=== PATIENT | male | born 1990 | race African-American/Black ===

== ENCOUNTER 2022-01-09 05:36 | Inpatient (IN) ==
[2022-01-09] MEDS ORDERED: AMMONIA INHALANT 1 EACH AMP INH ONE ×2 (05:40→05:47)
[2022-01-09] MEDS ORDERED: NALOXONE 0.4 MG/ML VIAL ONE (05:40)
[2022-01-09] MEDS ORDERED: hydrALAZINE 20 MG/1 ML VIAL IV STA (05:50)
[2022-01-09] MEDS ORDERED: NALOXONE 0.4 MG/ML VIAL IV STA (05:50)
[2022-01-09 06:14] LABS: Basophils # 0.1 10*3/uL (0.0-0.2); Basophils % 0.7 % (0.0-0.8); Eosinophils # 0.2 10*3/uL (0.0-0.87); Eosinophils % 2.7 % (0.00-10.9); Hematocrit 44.5 VOL% (42.0-52.0); Hemoglobin 14.6 GM/DL (14.0-18.0); Immature Granulocytes % 0.3 %; Immature Granulocytes Absolute 0.03 #; Lymphocytes # 3.5 10*3/uL (1.4-4.0); Lymphocytes % 39.5 % (21.2-54.2); Mean Corpuscular HGB Conc 32.8 GM/DL (32-36); Mean Corpuscular Volume 93.3 FL (87-102); Mean Platelet Volume 11.7 FL (9.6-12.0); Monocytes # 0.7 10*3/uL (0.11-0.8); Monocytes % 7.4 % (1.7-12.7); Neutrophils % 49.4 % (38.7-73.9); Platelet Count 214 T/CUMM (130-400); Red Blood Count 4.77 MC/CUMM (3.8-5.5); Red Cell Distribution Width 14.6 % (9.3-17.3); White Blood Count 8.9 T/CUMM (4-12)
[2022-01-09 06:15] LABS: Arterial Base Excess iSTAT 1 MMOL/L (-2.5-2.5); Arterial Bicarbonate iSTAT 24.2 MMOL/L (20-26); Arterial O2 Saturation iSTAT 98 % (95-100); Arterial PCO2 iSTAT 35 MM HG (35-48); Arterial PO2 iSTAT 103 MM HG (80-95); Arterial Total CO2 iSTAT 25 MMO/L (23-27); Arterial pH iSTAT 7.445 (7.35-7.45)
[2022-01-09 06:25] LABS: Alanine Aminotransferase 96 U/L (16-61); Albumin 4.3 G/DL (3.4-5.0); Alkaline Phosphatase 118 U/L (45-117); Aspartate Amino Transferase 56 U/L (0-37); Blood Urea Nitrogen 15 MG/DL (7-18); Calcium 9.4 MG/DL (8.5-10.1); Carbon Dioxide 25 MMOL/L (21-32); Chloride 110 MMOL/L (98-107); Glucose 104 MG/DL (74-106); Osmolality,Calculated 283.1 MOS/KG (273-304); Sodium 142 MMOL/L (136-145); Total Protein 8.6 G/DL (6.4-8.2)
[2022-01-09 06:33] LABS: Mucus,Urine Many /LPF (Occasional); RBC,Urine 1 /HPF (0-4)
[2022-01-09 06:34] LABS: Bilirubin,Urine Negative (Negative); Blood, Urine Negative (Negative); Glucose,Urine (UA) Negative (Negative); Ketones,Urine Negative (Negative); Nitrite,Urine Negative (Negative); Protein,Urine 30 mg/dL (Negative); Urine Appearance Clear (Clear); Urine Color Yellow (Yellow); Urine Specific Gravity > 1.030 (1.001-1.035); Urine Urobilinogen 0.2 eU/dL (<2.0)
[2022-01-09 06:43] LABS: Barbiturates Screen,Urine Negative (Negative); Benzodiazepines Screen,Urine Negative (Negative); Cannabinoid Screen,Urine Negative (Negative); Opiate Screen,Urine Negative (Negative); Phencyclidine Screen,Urine Negative (Negative)
[2022-01-09] MEDS ORDERED: SODIUM CHLORIDE 0.9% 1,000 ML IV STA (07:00)
[2022-01-09] MEDS ORDERED: GLUCAGON 1 MG VIAL IM PRN (08:18)
[2022-01-09] MEDS ORDERED: ACETAMINOPHEN 325 MG TABLET PO PRN (08:18)
[2022-01-09] MEDS ORDERED: ONDANSETRON 4 MG/2 ML VIAL IV PRN (08:18)
[2022-01-09] MEDS ORDERED: ZALEPLON 5 MG CAPSULE PO PRN (08:18)
[2022-01-09] MEDS ORDERED: DEXTROSE 10% 250 ML BAG IV PRN (08:24)
[2022-01-09] MEDS: PANTOPRAZOLE 40 MG TABLET PO SCH (09:16)
[2022-01-09] MEDS: LACTATED RINGERS 1,000 ML IV SCH ×2 (09:17→23:45)
[2022-01-09] MEDS: ENOXAPARIN 40 MG/0.4 ML SYRINGE SUBCUT SCH (09:18)
[2022-01-09 09:39] LABS: Hepatitis B Core IgM Quant < 0.05 Index; Hepatitis B Surface Ag Quant < 0.10 Index; Hepatitis B Surface Ag Result Non-Reactive (NonReactive); Hepatitis C Virus Ab Quant 0.06 Index; Hepatitis C Virus Ab Result Non-Reactive (NonReactive)
[2022-01-10 06:18] LABS: Basophils % 0.5 % (0.0-0.8); Eosinophils # 0.3 10*3/uL (0.0-0.87); Eosinophils % 3.1 % (0.00-10.9); Hemoglobin 13.8 GM/DL (14.0-18.0); Immature Granulocytes % 0.3 %; Immature Granulocytes Absolute 0.03 #; Lymphocytes # 3.6 10*3/uL (1.4-4.0); Lymphocytes % 41.7 % (21.2-54.2); Mean Corpuscular HGB Conc 32.9 GM/DL (32-36); Mean Corpuscular Volume 92.7 FL (87-102); Mean Platelet Volume 10.9 FL (9.6-12.0); Monocytes # 0.7 10*3/uL (0.11-0.8); Monocytes % 8.1 % (1.7-12.7); Neutrophils % 46.3 % (38.7-73.9); Platelet Count 193 T/CUMM (130-400); Red Blood Count 4.53 MC/CUMM (3.8-5.5); Red Cell Distribution Width 14.7 % (9.3-17.3); White Blood Count 8.6 T/CUMM (4-12)
[2022-01-10 06:39] LABS: Albumin 3.4 G/DL (3.4-5.0); Bilirubin,Total 0.6 MG/DL (0.20-1.00); Osmolality,Calculated 277.4 MOS/KG (273-304); Potassium 3.5 MMOL/L (3.5-5.1); Risk Ratio 6.61; Total Protein 6.9 G/DL (6.4-8.2); VLDL Cholesterol 20.4 MG/DL
[2022-01-10 06:46] LABS: Folate 10.13 NG/ML (5.38-24.0)
[2022-01-10] MEDS: ENOXAPARIN 40 MG/0.4 ML SYRINGE SUBCUT SCH (09:09)
[2022-01-10] MEDS: PANTOPRAZOLE 40 MG TABLET PO SCH (09:09)
[2022-01-10] MEDS: LACTATED RINGERS 1,000 ML IV SCH ×2 (09:09→22:10)
[2022-01-10] MEDS: VANCOMYCIN INJ 1,750 MG in SODIUM CHLORIDE 0.9% 500 ML IV SCH (12:40)
[2022-01-11] MEDS: LACTATED RINGERS 1,000 ML IV SCH ×3 (01:38→15:44)
[2022-01-11] MEDS: VANCOMYCIN INJ 1,750 MG in SODIUM CHLORIDE 0.9% 500 ML IV SCH ×2 (01:46→12:40)
[2022-01-11 04:50] LABS: Basophils # 0.1 10*3/uL (0.0-0.2); Basophils % 0.7 % (0.0-0.8); Eosinophils # 0.2 10*3/uL (0.0-0.87); Eosinophils % 3.2 % (0.00-10.9); Hematocrit 40.8 VOL% (42.0-52.0); Hemoglobin 13.7 GM/DL (14.0-18.0); Immature Granulocytes % 0.4 %; Immature Granulocytes Absolute 0.03 #; Lymphocytes # 3.1 10*3/uL (1.4-4.0); Lymphocytes % 43.1 % (21.2-54.2); Mean Corpuscular HGB Conc 33.6 GM/DL (32-36); Mean Corpuscular Volume 91.3 FL (87-102); Monocytes # 0.5 10*3/uL (0.11-0.8); Monocytes % 7.3 % (1.7-12.7); Neutrophils % 45.3 % (38.7-73.9); Platelet Count 191 T/CUMM (130-400); Red Blood Count 4.47 MC/CUMM (3.8-5.5); Red Cell Distribution Width 14.1 % (9.3-17.3); White Blood Count 7.3 T/CUMM (4-12)
[2022-01-11 05:18] LABS: Albumin 3.6 G/DL (3.4-5.0); Bilirubin,Total 0.6 MG/DL (0.20-1.00); Calcium 9.3 MG/DL (8.5-10.1); Osmolality,Calculated 273.5 MOS/KG (273-304); Potassium 4.1 MMOL/L (3.5-5.1); Total Protein 7.1 G/DL (6.4-8.2)
[2022-01-11] MEDS: ENOXAPARIN 40 MG/0.4 ML SYRINGE SUBCUT SCH (08:50)
[2022-01-11] MEDS: PANTOPRAZOLE 40 MG TABLET PO SCH (08:50)
[2022-01-12] MEDS: VANCOMYCIN INJ 1,750 MG in SODIUM CHLORIDE 0.9% 500 ML IV SCH ×2 (00:50→13:54)
[2022-01-12] MEDS: LACTATED RINGERS 1,000 ML IV SCH ×3 (00:51→23:13)
[2022-01-12 06:54] LABS: Albumin 3.5 G/DL (3.4-5.0); Bilirubin,Direct 0.15 MG/DL (0.0-0.20); Bilirubin,Indirect 0.5 MG/DL (0.0-1.0); Bilirubin,Total 0.6 MG/DL (0.20-1.00); Calcium 8.9 MG/DL (8.5-10.1); Osmolality,Calculated 275.4 MOS/KG (273-304); Potassium 3.5 MMOL/L (3.5-5.1); Total Protein 7.3 G/DL (6.4-8.2)
[2022-01-12] MEDS: PANTOPRAZOLE 40 MG TABLET PO SCH (08:42)
[2022-01-12] MEDS: ENOXAPARIN 40 MG/0.4 ML SYRINGE SUBCUT SCH (08:42)
[2022-01-13] MEDS: LACTATED RINGERS 1,000 ML IV SCH ×2 (07:01→10:35)
[2022-01-13] MEDS: PANTOPRAZOLE 40 MG TABLET PO SCH (08:22)
[2022-01-13] MEDS: ENOXAPARIN 40 MG/0.4 ML SYRINGE SUBCUT SCH (08:23)
[2022-01-13 08:54] VITALS: BP 151/89
== END 2022-01-13 12:42 | disposition home or self-care (01) | DRG 557 ==
LOC: EDBD → EDUNIT# → N.EDINP 05:36 → N.ED 05:36 → SUATTDRO 08:18 → N.5E 12:20 → SUATTDRO 01-10 10:40
PROVIDERS: ADMIT Family Medicine; ATTEND Internal Medicine